=== PATIENT | male | born 1990 | race Caucasian/White ===

== ENCOUNTER 2017-11-11 20:26 | Inpatient (IN) | payer OTHER ==
[~2017-11-11] VITALS: Ht 188 cm; Wt 81.6 kg
--- NOTE | 2017-11-11 22:00 | NUR ---
Intake Assessment: Pt is met in the Intake Office at approximately 2200 on 11/11/17. Pt appears severely intoxicated, When asked how he is, replies "high". Pt is slumped posture, disheveled with uncombed hair, unshaven with dirty fingernails and odorous, poor dental hygiene/unwashed clothing. Pt presents with flat affect, avoidant eye contact, worried, anxious, and depressed. VS's obtained: BP 144/87, HR 73, RR 16, SaO2 94%, and T 96.6. Pt states he has been using Heroin IV, last use about 2 hours prior at 8:30pm. Pt denies any SI/HI, able to list prior detox's/rehabs, but at other time extremely poor historian. Denies any PMHl lists PPH including Anxiety, Depression, ADHD, and Bipolar. Pt also denies any Sz hx but says he has experienced W/D induced delirium, no cardiac complications noted. Pt denies any known allergies, lists his height as 6'2", 210lbs. Rules and policies of unit explained to pt, pt verbalizes understanding
[2017-11-11] MEDS ORDERED: BUPRENORPHINE HCL 2 MG TAB.SUBL SL PRN (23:00)
[2017-11-11] MEDS ORDERED: ACETAMINOPHEN 325 MG TABLET PO PRN (23:00)
[2017-11-11] MEDS ORDERED: MIRALAX 17 GM POWD.PACK PO PRN (23:00)
[2017-11-11] MEDS ORDERED: ONDANSETRON 4 MG/2 ML VIAL IM PRN (23:00)
[2017-11-11] MEDS ORDERED: LOPERAMIDE HCL 2 MG CAPSULE PO PRN ×2 (23:00)
[2017-11-11] MEDS ORDERED: MAGNESIUM HYDROXIDE 30 ML LIQUID UDC PO PRN (23:00)
[2017-11-11] MEDS ORDERED: MAG HYDROX/AL HYDROX/SIMETH 30 ML LIQUID UDC PO PRN (23:00)
[2017-11-11] MEDS ORDERED: METHOCARBAMOL 750 MG TABLET PO PRN (23:00)
[2017-11-11] MEDS ORDERED: 5 DAY TAPER BUPRENORPHINE -SERENITY PROTOCOL SL PRN (23:00)
[2017-11-11] MEDS ORDERED: IBUPROFEN 400 MG TABLET PO PRN (23:00)
[2017-11-11] MEDS ORDERED: ONDANSETRON ODT 4 MG TAB.RAPDIS SL PRN (23:00)
[2017-11-11 23:25] LABS: *AMPHETAMINE, URINE NEGATIVE (NEGATIVE); *BARBITURATE, URINE NEGATIVE (NEGATIVE); *CANNABINOID, URINE NEGATIVE (NEGATIVE); *COCCAINE, URINE NEGATIVE (NEGATIVE); *OPIATE, URINE POSITIVE (NEGATIVE); *PHENCYCLIDINE SCREEN,URINE NEGATIVE (NEGATIVE)
[2017-11-11 23:30] LABS: BASOPHILS # (AUTO) 0.1 K/uL (0.0-8.0); BASOPHILS % (AUTO) 0.7 % (0.0-2.0); EOSINOPHILS % (AUTO) 0.4 % (0.0-7.0); HEMATOCRIT 40.5 % (36.7-47.1); LYMPHOCYTES # (AUTO) 2.4 K/uL (20.0-40.0); LYMPHOCYTES % (AUTO) 20.9 % (20.5-51.5); MEAN CORPUSCULAR HGB CONC 35 g/dL (32.5-36.3); MEAN CORPUSCULAR VOLUME 86.7 fL (73.0-96.2); MONOCYTES # (AUTO) 0.8 K/uL (2.0-10.0); NEUTROPHILS # (AUTO) 8.1 K/uL (1.8-8.9); PLATELET COUNT (AUTO) 276 K/uL (152-348); RED BLOOD CELL COUNT(AUTO) 4.68 MIL/uL (4.06-5.63); WHITE BLOOD COUNT (AUTO) 11.4 K/uL (3.6-10.2)
[2017-11-11 23:45] LABS: ALANINE AMINOTRANSFERASE 46 U/L (16-63); ALKALINE PHOSPHATASE 97 U/L (50-136); AMYLASE 26 U/L (25-115); ASPARTATE AMINOTRANSFERASE 39 U/L (15-37); BILIRUBIN,TOTAL 0.8 mg/dL (0.2-1.0); CARBON DIOXIDE 34 mmol/L (21-32); CHLORIDE 94 mmol/L (98-107); CREATININE 1.2 mg/dL (0.6-1.3); LIPASE 49 U/L (73-393); MAGNESIUM 2.1 mg/dL (1.8-2.4); TOTAL PROTEIN, SERUM 7.5 g/dL (6.4-8.2); UREA NITROGEN, BLOOD 30 mg/dL (7-18)
[2017-11-11 23:56] LABS: THYROID STIMULATING HORMONE 2.725 mIU/mL (0.358-3.740)
[2017-11-12] VITALS: BP 136/94
--- NOTE | 2017-11-12 | NUR ---
Admission Note: Pt admitted to [facility] on 11/11/17 at 2248 hours for medically managed withdrawal from ETOH, Heroin, and Methamphetamine salts. Pt is being listed as a full code, with NKA's, and on a diabetic diet. Admission interview taking place in pt room after skin check reveals skin intact with no contraband, height confirmed at 6'2", and weight adjusted to 180lbs (30lbs less than pt estimate). Pt presents with flat affect, lethargic movement/steady gait, severely intoxicated and not experiencing any withdrawal but able to answer questions and appears oriented x 4. Pt also appears depressed, anxious and restless, worried with avoidant eye contact. Pt denies any PMH, but examination of home meds reveals Humolog and Lantus insulin pens, with needles, Lotrimen topical and Abreva topical. Pt admits to DM since age 10. Pt PPH/PMH now includin. DM Type I 2. Anxiety 3. Depression 4. ADHD 5. Bipolar PPH diagnosed and treated by a "Dr Cole" at [facility], a sober living and IOP, in spring 2017, where pt was from May 2017 to August 2017, pt was able to stay sober for 4 months. Pt also lists [facility] from Mar 08, 2017 to May 01, 2017, another sober living/IOP where pt was able to stay sober for 2 months. Prior to that pt was in [facility], resident, from 2016 to Mar 08, 2017 and [facility] in [facility] from Jan 20, 2017 to Feb 15, 2017 as a resident. In addition, pt admits to more than 20+ detox's and rehabs , with 1.5 years being his longest period sober. Pt lists his substance use, in order of use, as: 1..Heroin IV 1-1.5g/day for last 2 months, last used 2 hours before arrival to [facility], and starting 7 years ago 2. ETOH, 3-12 drinks (45-495mls) 4-5 days/week, last used 11/08/17, starting 14 years ago. 3. Methamphetamine salts, .5g/day used for 2-3 days, occasional use, last used 11/07/17, used for last 5 years. 4. Marijuana, occasional use, for last 14 years . In addition, Pt states remote cigarette hx, and now vapes. Pt list father, mother, and sister as family, no medical hx on any, substance abuse denied for all. Pt denies any SI/HI at present, admits to HI in past, denies Seizure Hx, admits to W/D induced delirium, last occurring a week ago with Meth. Pt states he "went to bed and slept through it". Hx of O/D with Heroin for which he was treated here at [facility] a year ago in ER. No involuntary 5150's or psyc hospitalizations noted. Pt list his w/d symptoms as "bad sleep-insomnia, difficulty falling asleep, cold/hot sweats, really sore, anxious and irritable". 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 When asked why he uses, pt states "I have no idea", on getting sober pt states "I can't keep doing this, I won't live". Pt at first unable to list triggers for relapse, but admits due to coenablers, "boredom and unhappy". Legal consequences are apparent when pt states reason for getting sober is for [employer], unaware if in violation. Asked about barrier to getting sober pt is unable to identify, but states "This is my last chance, I'm losing everything". Pt has toured unit, policies, rules have been explained and detailed. Pt acknowledges understanding. Full safetly measures put into place with bed locked and in lowest position, siderails up x 2, call horton within reach and frequent rounding. Blood has been drawn and U/A obtained. Home meds reconciled by CN. Will continue to monitor pt until EOS, giving endorsement and attending to any s/sx's w/d or distress exhibited. Addendum: 11/12/17 at 0706 by FABI FERRIS RN Pt state for PPH he was dx and tx'd with meds for various dx's from age 11. Pt unable to recall names of any of medications. Dr Cole with [facility] decided "best medication was no medication" according to pt, in spring 2017.
[2017-11-12 00:05] LABS: ETHANOL < 3 MG/DL (0-0)
[2017-11-12 00:07] LABS: GLUCOSE 316 mg/dL (74-106)
--- NOTE | 2017-11-12 00:07 | NUR ---
CRITICAL LAB/MD COMMUNICATION Blood glucose 316. Pt brought home medications of Lantus and Humalog. Dr. Kaufman notified with new orders for sliding scale and Accucheck AC/HS. 8 units of Humalog administered as ordered for Blood glucose 316.
[2017-11-12] MEDS ORDERED: DEXTROSE 50% 50 ML DISP.SYRIN IV PRN (00:30)
[2017-11-12] MEDS ORDERED: DOCO2CRE TP (01:10)
[2017-11-12] MEDS ORDERED: CLOT30CR24 TP (01:10)
[2017-11-12] MEDS ORDERED: INSU3INS6 SQ (01:10)
[2017-11-12] MEDS ORDERED: INSU100I14 (01:10)
[2017-11-12 04:00] VITALS: BP 143/94
--- NOTE | 2017-11-12 04:00 | NUR ---
0400 Rounds VS's obtained/stable. COWS/CIWA deferred r/t pt intoxication. 1.5g Heroin IV last ingested approximately 7.5 hours prior. No s/sx's of w/d evident, pt reports still feeling high.
--- NOTE | 2017-11-12 07:30 | NUR ---
Star of Shift Notes: Received patient in his room. Awake, alert and verbally responsive. Appears mildly intoxicated. Speech is soft and slurred. He appears irritated and agitated. Requesting for medication for anxiety. He denies S/I or H/I. Denies AV hallucinations. He is unshaven, unkept, and appears disheveled with poor regards to hygiene. He is noted with with a bag of skittles, 2 uneaten cups of cocoa krispies cereal. Patient has dx of DM type 1. He was educated on diet regimen. Patient is a 27 year old male admitted for opiate, ETOH and methamphetamine withdrawal who is on PRNs at this time. Educated patient on his current plano of care for the day and his medication regimen. Encouraged oral fluid intake and encouraged group participation to learn new skills to prevent relapse. He was also encouraged to maintain his personal hygiene and space. Per night report, patient did not receive any PRNs. All needs met and attended. Will continue to monitor closely.
--- NOTE | 2017-11-12 07:36 | NUR ---
End of Shift Endorsement given to day nurse. Pt admitted 11/11/17 in late evening for medically managed withdrawal from ETOH, Heroin and Methamphetamine salts. Pt is listed as a full code with NKA's and on a carbohydrate controlled diet. Pt remained intoxicated at 0500, no COWS or CIWA performed. VS's with elevated BP. No medications administered. Pt slept for 3 hours, with 355mls intake and 1 void. CN notified of pt's reports of intermittent ED, parasthesias in BLE's, Diabetic consult to be suggested in morning charge endorsement in addition to dietary consult for 30lb loss over past 2 months. Accucheks and sliding scale insulin ordered.
[2017-11-12] MEDS: BLOOD SUGAR DIAGNOSTIC 1 EACH STRIP VI SCH ×4 (07:53→21:11)
[2017-11-12] MEDS: INSULIN REGULAR, HUMAN 300 UNIT/3 ML VIAL SQ PRN ×2 (07:56→16:41)
[2017-11-12 08:00] VITALS: BP 111/66
--- NOTE | 2017-11-12 08:00 | NUR ---
COWS Assessment/Subutex at 0900 held: COWS 9, patient appears with facial flushing, c/o intermittent sweating, generalized discomfort and is irritable and anxious. Subutex at 0900 held. Patient currently does not meet criteria for Subutex administration at this time. Patient education provided. Will continue to monitor.
[2017-11-12] MEDS: MULTIVITAMINS,THERAPEUTIC TABLET PO SCH (08:14)
[2017-11-12] MEDS: HYDROXYZINE PAMOATE 25 MG CAPSULE PO PRN (08:14)
--- NOTE | 2017-11-12 08:15 | NUR ---
Vistaril 50 mg PO given: Patient complains of anxiety. BP 111/66, Pulse 60. Non-pharmacological interventions provided but ineffective. Medicated patient with Vistaril 50 mg PO as ordered. Will monitor for effectiveness.
[2017-11-12] MEDS: BUPRENORPHINE HCL 2 MG TAB.SUBL SL SCH ×4 (09:00→21:19)
[2017-11-12] MEDS ORDERED: TUBERCULIN,PURIF.PROT.DERIV. 5 TU/0.1 ML TEST ID ONE (09:00)
--- NOTE | 2017-11-12 09:15 | NUR ---
Re-assessment: Vistaril Patient verbalizes mild relief from anxiety at this time. PRN Vistaril was effective.
--- NOTE | 2017-11-12 11:38 | NUR ---
MD Communication: 3-day Ativan taper Dr. Kaufman notified of patient's ETOH use. Orders obtained for patient to be started on 3-day Ativan taper as ordered. Patient education provided. First dose to be given now.
[2017-11-12 12:00] VITALS: BP 139/98
--- NOTE | 2017-11-12 12:00 | NUR ---
COWS/CIWA Assessment: COWS 16/CIWA 18, patient presented with gross tremors, anxiety, agitation, irritability, intermittent perspiration, clammy skin, chills, hot flashes, yawning, myalgia of 5/10, mild headache, paresthesia, worried facial expression, he appears disheveled, unkempt, and restlessness noted. Offered Robaxin for myalgia but refused. Patient was started on 3-day Ativan taper and 5-day Subutex taper per schedule. Offered fluids and support provided. Will continue to monitor.
--- NOTE | 2017-11-12 12:00 | NUR ---
[facility] Assessment: CIWA 14, patient continues to present with anxiety, agitation, irritability, worried facial expression, gross tremors and intermittent perspiration. He was encouraged to attend group due to episodes of self isolation. Offered PRNs. Oral fluids encouraged. Support provided. Will continue to monitor. Addendum: 11/12/17 at 1519 by DEXTER CURTIS LVN Error in charting
[2017-11-12] MEDS: LORAZEPAM 1 MG TABLET PO SCH ×4 (12:03→21:19)
--- NOTE | 2017-11-12 12:27 | NUR ---
Clarification of ETOH use: Patient reports 3-12 cocktail drinks of [place] Whiskey and Ena Alexandra approximately 3 to 4 nights a week with each drink consisting of approximately 100 ml of whiskey. made aware. Last drink was 11/08/2017, 12-13 whiskey/ena alexandra cocktail.
[2017-11-12 16:00] VITALS: BP 107/67
--- NOTE | 2017-11-12 16:25 | NUR ---
COWS/CIWA Assessment: COWS /CIWA 15, patient continues to present with s/s of withdrawal m/b yawning, paresthesia, tachycardia, anxiety, agitation, gross tremors, intermittent sweating, facial flushing, chills, hot flashes, myalgia and anhedonia. He continues to appear disheveled. Encouraged personal hygiene. Will continue to monitor and medicate patient as ordered.
[2017-11-12] MEDS: LANTUS SOLO STAR SQ SCH (16:45)
--- NOTE | 2017-11-12 19:12 | NUR ---
End of Shift Notes: Patient continues to be on 5-day Subutex and 3-day Ativan taper as ordered to manage withdrawal symptoms related to opiates. VS monitored closely. No significant abnormalities noted. Withdrawal symptoms were closely monitored. Initial COWS 9 at 0800, then 16 at 1200, CIWA 18 patient presented with anxiety, agitation, irritability, generalized discomfort, fatigue, malaise, anhedonia, myalgia, intermittent perspiration, and facial flushing. Medicated patient with Vistaril 50 mg Po at 0815 for anxiety with help. 0900 Subutex held, due to COWS 9. BS monitored closely q AC. Administered RI per SS. Patient received 50U of Lantus insulin as ordered. Verified with MD and pharmacy. No diabetic reactions noted. Patient was started on 3-day Ativan taper at 1140 today. Last COWS 12/CIWA 15. All needs met and attended. Safety precautions in place. All needs met and attended. Will continue to monitor closely.
--- NOTE | 2017-11-12 19:30 | NUR ---
Start of Shift Note Received a 27 y/o male px, admitted for medically supervised withdrawal from ETOH and Heroin. Px was placed on 5 day Subutex taper and 3 day Ativan taper started on 11/12/2017. Last reported COWS 12 and CIWA 15 by AM shift nurse. Px has DM 1. During the rounds at 1930, px awake on bed in left side lying position. Px appears sleepy and drowsy with poor eye contact and soft speech. Px is disheveled and unshaven. Px stated that anxiety is 8/10 and has stomach cramps. Bed on lowest position, side rails up 2x, and call light within reach. We'll continue to monitor.
[2017-11-12 20:00] VITALS: BP 127/78
--- NOTE | 2017-11-12 20:00 | NUR ---
COWS 12 and CIWA 13 Px appears anxious and drowsy during assessment. Mild bilateral hand tremors noted. Stomach cramps present. Px complained of sweats at night and stuffy nose.
[2017-11-12] MEDS: DICYCLOMINE HCL 20 MG TABLET PO PRN (21:19)
--- NOTE | 2017-11-12 21:20 | NUR ---
PRN Bentyl Px received Bentyl 20 mg PO for stomach cramps. To reassess after an hour.
--- NOTE | 2017-11-12 21:20 | NUR ---
BG BG= 315. Humulin R 8 "u" given SQ on right lower quadrant per sliding scale.
[2017-11-12] MEDS: INSULIN REGULAR, HUMAN 300 UNITS/3 ML VIAL SQ PRN (21:23)
--- NOTE | 2017-11-12 21:50 | NUR ---
COWS 12 reassessment Px still appears anxious. Mild bilateral hand tremors still noted. Px complained of sweats at night and stuffy nose.
--- NOTE | 2017-11-12 22:20 | NUR ---
CIWA 13 reassessment Px still appears anxious and depressed with poor eye contact. Mild bilateral hand tremors noted. We'll continue to monitor.
[2017-11-13] VITALS: BP 119/77
--- NOTE | 2017-11-13 | NUR ---
COWS and CIWA deferred COWS and CIWA deferred due to the px is asleep. To assess if the px is awake per doctor's order. We'll continue to monitor.
[2017-11-13 04:00] VITALS: BP 121/78
--- NOTE | 2017-11-13 07:10 | NUR ---
End of Shift Note During the shift at 2119, px TS=216, Humulin R 8 "u" given SQ on right lower quadrant aseptically per sliding scale. He was also given Bentyl 20 mg PO for stomach cramps. It was effective. Px oral intake is 1200 ml, voided 2x, without BM. Px slept for total of 8 hours. Last COWS 12 and CIWA 13. At 0630, px is awake on bed in left side lying position. Bed on lowest position, side rails up 2x, and call light within reach. We'll continue to monitor. Px endorsed to AM shift nurse.
--- NOTE | 2017-11-13 07:25 | NUR ---
Start of shift Pt. is a 27 y/o male admitted for medically managed withdrawal from ETOH(whiskey), Opiates (Heroin), and Methamphetamines. Pt. was placed on a 5 day subutex taper and a 3 day ativan taper to managed withdrawal symptoms. Today is the pt.'s second day of taper medications. Endorse pt. presented with anxiety, restlessness and stomach cramps during previous shift. PRN Bentyl was given to manage withdrawal symptoms. Received pt. in room. Pt. laying face down in his bed with eyes closed. No, signs of SOB noted. Pt.'s linens are cluttered, open food containers are on the counters around the bed, and pt. presents with facial flushing while sleeping. Last COW's 11 and CIWA 12. Safety measures in place. Will continue to monitor pt.'s behavior for safety.
[2017-11-13 08:00] VITALS: BP 118/73
--- NOTE | 2017-11-13 08:00 | NUR ---
COWS/CIWA Assessment: COWS 11/CIWA 12. Pt. in room laying in bed and presents with diaphoresis, Flushed facial congested, piloerection, slight tremor, and anxiety. Pt. compliant with medication regiment at this point will continue to monitor. Pt.'s behavior for safety.
[2017-11-13 08:06] LABS: HEPATITIS B SURFACE AG Negative (Negative)
[2017-11-13] MEDS: LORAZEPAM 1 MG TABLET PO SCH ×3 (08:26→21:11)
[2017-11-13] MEDS: MULTIVITAMINS,THERAPEUTIC TABLET PO SCH (08:26)
[2017-11-13] MEDS: BLOOD SUGAR DIAGNOSTIC 1 EACH STRIP VI SCH ×4 (08:26→21:22)
[2017-11-13] MEDS: BUPRENORPHINE HCL 2 MG TAB.SUBL SL SCH ×3 (08:30→21:11)
[2017-11-13 12:00] VITALS: BP 119/77
--- NOTE | 2017-11-13 12:00 | NUR ---
COWS/CIWA Assessment: COWS /CIWA 12. Pt. in room laying in bed and presents with diaphoresis, Flushed facial congested, piloerection, slight tremor, and anxiety. Pt. compliant with medication regiment and accucheck. Encouraged pt. to verbalize concerns and emotions. Will continue to monitor Pt.'s behavior for safety.
[2017-11-13] MEDS: INSULIN REGULAR, HUMAN 300 UNIT/3 ML VIAL SQ PRN ×2 (12:22→16:33)
[2017-11-13 16:00] VITALS: BP 123/69
--- NOTE | 2017-11-13 16:00 | NUR ---
COWS/CIWA Assessment: COWS 11/CIWA 11. Pt. in room laying in bed and presents with diaphoresis, Flushed facial congested, piloerection, slight tremor, and anxiety. Pt. compliant with medication regiment at this point will continue to monitor.
[2017-11-13] MEDS: LANTUS SOLO STAR SQ SCH (16:34)
--- NOTE | 2017-11-13 19:21 | NUR ---
End of shift Pt. is a 27 y/o male admitted for medically managed withdrawal from ETOH(whiskey), Opiates (Heroin), and Methamphetamines. Pt. was placed on a 5 day subutex taper and a 3 day ativan taper to managed withdrawal symptoms. Pt. was compliant with medication regiment and treatment plan throughout the day.Pt. presented with anxiety, restlessness flushed facial skin, congestion and piloerection. No PRN's given during shift. Last COW's 11 and CIWA 11. Safety measures in place. Will continue to monitor pt.'s behavior for safety.
--- NOTE | 2017-11-13 19:50 | NUR ---
Start of Shift Note Received a 27 y/o male px, admitted for medically supervised withdrawal from ETOH and Heroin. Px was placed on 5 day Subutex taper and 3 day Ativan taper started on 11/12/2017. Last reported COWS 11 and CIWA 11 by AM shift nurse. Px has DM 1. During the rounds at 1950, px is awake sitting on the edge of the bed eating peanuts. Px appears sleepy and drowsy with poor eye contact and soft speech. Px is disheveled and unshaven. Px stated that anxiety is 4/10 and has stomach cramps. Bed on lowest position, side rails up 2x, and call light within reach. We'll continue to monitor.
[2017-11-13 20:00] VITALS: BP 136/81
--- NOTE | 2017-11-13 20:00 | NUR ---
COWS 10 and CIWA 9 Px appears anxious. Mild bilateral hand tremors noted. Stomach cramps present. Px complained of sweats/chills and stuffy nose. MS is less than 80.
[2017-11-13] MEDS: DICYCLOMINE HCL 20 MG TABLET PO PRN (21:11)
--- NOTE | 2017-11-13 21:11 | NUR ---
PRN Bentyl Px received Bentyl 20 mg PO for stomach cramps. To reassess after an hour.
[2017-11-13] MEDS: INSULIN REGULAR, HUMAN 300 UNITS/3 ML VIAL SQ PRN (21:14)
--- NOTE | 2017-11-13 21:15 | NUR ---
BG BG= 393 mg/dl. Humulin R 10 "u" given SQ on left quads per sliding scale.
--- NOTE | 2017-11-13 21:30 | NUR ---
Notes on Diet At 2100, a WATERPROOFING SUPERVISOR found a pack of gummy candies and a bottle of vitamin water inside his room covered with blanket. At 2230, a WATERPROOFING SUPERVISOR caught the px eating a regular ice cream bar. Diabetes was explained and strict diet should be followed in his case. Px stated that he already knows what was explained to him. We'll continue to monitor.
--- NOTE | 2017-11-13 21:41 | NUR ---
COWS 10 reassessment Px appears anxious. Mild bilateral hand tremors noted. Px was given Bentyl for stomach cramps. Px complained of sweats/chills and stuffy nose.
--- NOTE | 2017-11-13 22:11 | NUR ---
CIWA 9 reassessment Px appears anxious. Mild bilateral hand tremors noted. Bentyl 20 mg PO given stomach cramps.
--- NOTE | 2017-11-13 22:11 | NUR ---
Reassessment of Stomach cramps Px stated that his stomach cramps improved after an hour of administration of Bentyl 20 mg PO.
[2017-11-14] VITALS: BP 122/77
--- NOTE | 2017-11-14 | NUR ---
COWS 10 and CIWA 9 Px still appears anxious but ready to sleep. Mild bilateral hand tremors noted. Bentyl 20 mg PO given for stomach cramps earlier. Px complained of sweats/chills and stuffy nose. MN is less than 80.
[2017-11-14 04:00] VITALS: BP 122/77
--- NOTE | 2017-11-14 07:05 | NUR ---
End of Shift Note During the shift at 2023, px received Bentyl 20 mg PO for stomach cramps. It was effective. At 2031, px received MOM 30 ml PO for constipation. Px oral intake is 1000 ml, voided 2x, NO BM. Px slept for 7 hours. Last COWS 12 and CIWA 17. At 0630, px is asleep on bed in fowlers position. Bed on lowest position, side rails up 2x, and call light within reach. We'll continue to monitor. Px endorsed to AM shift nurse.
--- NOTE | 2017-11-14 07:30 | NUR ---
Star of Shift Notes: Received patient in his room. Awake, alert and verbally responsive. Appears drowsy upon waking. Speech is soft and slurred. He appears irritated and agitated. He denies S/I or H/I. Denies AV hallucinations. He is unshaven, unkept, and appears disheveled with poor regards to hygiene. Empty sugar free pudding and diet cranberry juice seen at bedside. Patient has dx of DM type 1. He was educated on diet regimen and encouraged to comply. Patient is a 27 year old male admitted for opiate, ETOH and methamphetamine withdrawal who is placed on a 5-day Subutex and 3-day Ativan as ordered. Educated patient on his current plan of care for the day and his medication regimen. Encouraged oral fluid intake and encouraged group participation to learn new skills to prevent relapse. He was also encouraged to maintain his personal hygiene and space. Per night report, christiano received Bentyl for abdominal cramps with help. Last COWS 10/CIWA 9. Slept for a total of 5 hours. All needs met and attended. Will continue to monitor closely.
[2017-11-14 08:00] VITALS: BP 136/93
--- NOTE | 2017-11-14 08:00 | NUR ---
COWS/CIWA Assessment/MD Communication: COWS 18/CIWA 15, patient presented with facial flushing, restlessness, bone/joint aches, nasal stuffiness, stomach cramps, gross tremors, irritability, anxiety/agitation, yawning, cold clammy skin, piloerection of the skin, paresthesia and anhedonia. Will medicate patient as ordered. MD aware of patient's CIWA score.
[2017-11-14] MEDS: BLOOD SUGAR DIAGNOSTIC 1 EACH STRIP VI SCH ×4 (08:09→20:21)
[2017-11-14] MEDS: LORAZEPAM 1 MG TABLET PO SCH ×2 (08:11→20:18)
[2017-11-14] MEDS: INSULIN REGULAR, HUMAN 300 UNIT/3 ML VIAL SQ PRN ×3 (08:11→16:38)
[2017-11-14] MEDS: MULTIVITAMINS,THERAPEUTIC TABLET PO SCH (08:12)
[2017-11-14] MEDS ORDERED: BUPRENORPHINE HCL 2 MG TAB.SUBL SL SCH (09:00)
[2017-11-14 12:00] VITALS: BP 133/78
--- NOTE | 2017-11-14 12:30 | NUR ---
COWS/CIWA Assessment: COWS 14/CIWA 14, patient continues to present with anxiety, agitation, irritability, chills, hot flashes, diaphoresis, facial flushing, restlessness, and paresthesia. Will continue with current taper as ordered.
[2017-11-14] MEDS: BUPRENORPHINE HCL 2 MG TAB.SUBL SL SCH ×2 (14:12→20:18)
[2017-11-14 16:00] VITALS: BP 145/95
--- NOTE | 2017-11-14 16:14 | NUR ---
COWS/CIWA Assessment: COWS 13, CIWA 13, patient continues to present with gross tremors, anxiety, agitation, irritability, facial flushing, intermittent perspiration, myalgia, yawning and restlessness. Will continue to monitor and offer support.
[2017-11-14] MEDS: LANTUS SOLO STAR SQ SCH (16:29)
--- NOTE | 2017-11-14 19:07 | NUR ---
End of Shift Notes: Patient continues to be on 5-day Subutex and 3-day Ativan taper as ordered to manage withdrawal symptoms related to opiates and ETOH. VS monitored closely. No significant abnormalities noted. Withdrawal symptoms were closely monitored. Initial COWS 18 at patient presented with anxiety, agitation, irritability, generalized discomfort, stomach cramps, paresthesia fatigue, malaise, anhedonia, myalgia, intermittent perspiration, and facial flushing. Last COWS 13/CIWA 13. Patient verbalizes that Subutex and Ativan has been effective in reducing his withdrawal symptoms. BS monitored closely q AC meals. Administered RI per SS. Patient continues to be non-compliant with diet although encouraged to comply. No s/s of hypo/hyperglyemia noted. All needs met and attended. Safety precautions in place. Will continue to monitor closely.
--- NOTE | 2017-11-14 19:51 | NUR ---
START OF SHIFT NOTE Rcvd report from outgoing nurse. Pt is a 27 y/o male A/O to person, place, time, and purpose. Pt was admitted for medically supervised withdrawal from ETOH and Heroin. Pt has a medical h/o DM type 1. Pt has been non-compliant w/ carbohydrate controlled diet. Pt has been educated on compliance w/ diet. Pt has been presenting w/ anxiety, agitation, depressed and withdrawn mood, flat affect, restless legs, body aches, and sweats. Pt denies S/I and H/I. Pt rcvd no PRN medications during previous shift. Last CIWA 13 and COWS 13 @ 1600. Call light is within reach. Pt will continue to be monitored and needs met.
--- NOTE | 2017-11-14 20:00 | NUR ---
CIWA AND COWS ASSESSMENT CIWA 15 and COWS 14. Pt presenting w/ anxiety, agitation, restless legs, body aches, and sweats. Pt is depressed and withdrawn. Pt only leaves his room to smoke occasionally. V/S: T:98.9, P:67, RR:12, SPO2:98, BP:159/77.
[2017-11-14 20:01] VITALS: BP 159/77
[2017-11-14] MEDS: diphenhydrAMINE 50 MG CAPSULE PO PRN (20:17)
[2017-11-14] MEDS: CLONIDINE HCL 0.1 MG TABLET PO PRN (20:17)
--- NOTE | 2017-11-14 20:17 | NUR ---
PRN CLONIDINE ASSESSMENT Clonidine 0.1mg given. Pt is c/o anxiety leading to insomnia. Will reassess pt in 1 hr.
[2017-11-14] MEDS: INSULIN REGULAR, HUMAN 300 UNITS/3 ML VIAL SQ PRN (20:24)
--- NOTE | 2017-11-14 21:17 | NUR ---
PRN CLONIDINE REASSESSMENT Pt states "the clonidine did nothing for me. Can I try the Vistaril". Will administer Vistaril.
[2017-11-14] MEDS: HYDROXYZINE PAMOATE 25 MG CAPSULE PO PRN (21:23)
--- NOTE | 2017-11-14 21:23 | NUR ---
PRN VISTARIL ADMINISTRATION Vistaril 50mg given. Pt c/o anxiety causing him insomnia. Will reassess pt in 1 hr.
--- NOTE | 2017-11-14 22:23 | NUR ---
PRN VISTARIL REASSESSMENT Pt states mild relief of anxiety. Pt, however, unable to sleep. Advised pt to turn off lights and turn downm TV. Also, to close eyes and try deep breathing.
--- NOTE | 2017-11-15 00:03 | NUR ---
CIWA AND COWS DEFERRED. V/S REFUSED Pt is in bed w/ his eyes closed. Pt's respirations are unlabored and even.
--- NOTE | 2017-11-15 04:03 | NUR ---
CIWA AND COWS DEFERRED. V/S REFUSED Pt is in bed w/ his eyes closed. Pt's respirations are unlabored and even.
--- NOTE | 2017-11-15 07:15 | NUR ---
END OF SHIFT NOTE Endorsed pt to oncoming nurse. Pt is a 27 y/o male A/O to person, place, time, and purpose. Pt was admitted for medically supervised withdrawal from ETOH and Heroin. Pt has a medical h/o DM type 1. Pt has been non-compliant w/ carbohydrate controlled diet. Pt has been educated consistently on compliance w/ diet. Pt has been presenting w/ anxiety, agitation, depressed and withdrawn mood, flat affect, restless legs, body aches, and sweats. PRN Vistaril 50mg and Clonidine 0.1mg were given for anxiety and agitation, both noted effective. Pts fluid intake was 500ml and he voided 1 time. Pt slept for 6 hrs. Last CIWA 15 and COWS 14 @ 1999. Call light is within reach.
--- NOTE | 2017-11-15 07:46 | NUR ---
Star of Shift Notes: Received patient in his room. Awake, alert and verbally responsive. He appears irritated and agitated. He denies S/I or H/I. Denies AV hallucinations. He is unshaven, unkept, and appears disheveled with poor regards to hygiene. He was educated on diet regimen and encouraged to comply. Patient is a 27 year old male admitted for opiate, ETOH and methamphetamine withdrawal who is placed on a 5-day Subutex and 3-day Ativan as ordered. Educated patient on his current plan of care for the day and his medication regimen. Encouraged oral fluid intake and encouraged group participation to learn new skills to prevent relapse. He was also encouraged to maintain his personal hygiene and space. Per night report, patient received Vistaril and Clonidine. Last . Slept for a total of 6 hours. All needs met and attended. Will continue to monitor closely.
[2017-11-15 08:00] VITALS: BP 109/69
[2017-11-15] MEDS: BLOOD SUGAR DIAGNOSTIC 1 EACH STRIP VI SCH ×4 (08:09→21:01)
[2017-11-15] MEDS: HYDROXYZINE PAMOATE 25 MG CAPSULE PO PRN ×3 (08:11→20:56)
[2017-11-15] MEDS: MULTIVITAMINS,THERAPEUTIC TABLET PO SCH (08:11)
[2017-11-15] MEDS: BUPRENORPHINE HCL 2 MG TAB.SUBL SL SCH ×3 (08:11→20:56)
--- NOTE | 2017-11-15 08:11 | NUR ---
Vistaril 50 mg PO given: Patient noted with complains of increased anxiety, irritability. Encouraged patient to verbalize his feelings and concerns. VS stable. Medicated patient with Vistaril 50 mg PO as ordered. Will monitor for effectiveness.
[2017-11-15] MEDS: INSULIN REGULAR, HUMAN 300 UNIT/3 ML VIAL SQ PRN ×3 (08:17→16:39)
--- NOTE | 2017-11-15 08:30 | NUR ---
COWS/CIWA Assessment: COWS 16/CIWA 15, patient presented with difficulty concentrating, chills, hot flashes, restlessness, nasal stuffiness, myalgia, bone/joint aches, facial flushing, intermittent diaphoresis, sweating on brow/face, anxiety, agitation, irritability, and paresthesia. Medicated patient with Subutex per taper dosing. Will continue to monitor.
--- NOTE | 2017-11-15 09:11 | NUR ---
Re-assessment: Vistaril 50 mg Patient verbalizes relief from anxiety. PRN Vistaril was effective. He states "I'm just going to go smoke, but I feel better."
[2017-11-15 12:00] VITALS: BP 120/73
--- NOTE | 2017-11-15 12:22 | NUR ---
COWS/CIWA Assessment: COWS 14/CIWA 13, patient is alert and oriented x 4. Denies S/I or H/I noted. No AV hallucinations noted. He continues to present with s/s of withdrawal m/b gross tremors, anxiety, agitation, irritability, generalized discomfort, fatigue, pupil dilation, chills, hot flashes and fatigue. Will continue with current taper as ordered.
[2017-11-15] MEDS ORDERED: DEXTROSE 50% 50 ML DISP.SYRIN IV PRN (14:15)
--- NOTE | 2017-11-15 14:35 | NUR ---
Vistaril 50 mg PO given: Patient continues to present with increased anxiety and agitation. Non-pharmacological interventions provided but ineffective. Medicated patient with Vistaril 50 mg PO as ordered. Will monitor for effectiveness.
--- NOTE | 2017-11-15 15:35 | NUR ---
Re-assessment: Vistaril Patient verbalizes relief mild relief from anxiety. PRN Vistaril was effective.
[2017-11-15 16:00] VITALS: BP 137/85
--- NOTE | 2017-11-15 16:17 | NUR ---
COWS/CIWA Assessment: COWS 11/CIWA 12, patient continues to present with s/s of withdrawal m/b anxiety. agitation, gross tremors, irritability, myalgia, bone/joint aches, facial flushing, intermittent perspiration, sweating, and paresthesia. Will continue with taper meds as ordered.
[2017-11-15] MEDS: LANTUS SOLO STAR SQ SCH (16:41)
--- NOTE | 2017-11-15 19:02 | NUR ---
End of Shift Notes: Patient continues to be on 5-day Subutex and 3-day Ativan taper as ordered to manage withdrawal symptoms related to opiates and ETOH. VS monitored closely. No significant abnormalities noted. Withdrawal symptoms were closely monitored. Initial COWS 16/CIWA 15, patient presented with anxiety, agitation, irritability, generalized discomfort, stomach cramps, paresthesia fatigue, malaise, anhedonia, myalgia, intermittent perspiration, difficulty concentrating and facial flushing. Medicated patient with Vistaril at 0811 and 1435 for anxiety with help. Last COWS /WA 12. Patient verbalizes that Subutex and Ativan has been effective in reducing his withdrawal symptoms. BS monitored closely q AC meals. Administered RI per SS. Patient continues to be non-compliant with diet although encouraged to comply. No s/s of hypo/hyperglycemia noted. Participated in group and activities. All needs met and attended. Safety precautions in place. Will continue to monitor closely.
--- NOTE | 2017-11-15 19:46 | NUR ---
START OF SHIFT NOTE Rcvd report from outgoing nurse. Pt is a 27 y/o male A/O to person, place, time, and purpose. Pt was admitted for medically supervised withdrawal from ETOH and Heroin. Pt also has a substance abuse h/o Marijuana and Methamphetamines. Pt has a medical h/o DM1 and is on a carb control diet. Pt has not been compliant w/ diet, even though he has been educated several times. Pt has been presenting w/. anxiety, agitation, body aches, restless legs, blunt affect, depressed and withdrawn mood. Pt has stated several times that he feels trapped and bored here, and wants to leave early. Pt was advised that it has to be a joint decision by his medical team and his telehealth case manager/planner internship. Pt denies S/I and H/I. PRN Vistaril 50mg was given @ 1200 and 1630, noted effective. Last CIWA 12 and COWS 11 @ 1600. Call light is within reach. Pt will continue to be monitored and needs met.
[2017-11-15 20:00] VITALS: BP 133/84
--- NOTE | 2017-11-15 20:00 | NUR ---
CIWA AND COWS ASSESSMENT CIWA 13 and COWS 12. Pt has been presenting w/. anxiety, agitation, body aches, restless legs, blunt affect, depressed and withdrawn mood. V/S: T:99.1, P:67, RR:16, SPO2:100, BP:133/84.
[2017-11-15] MEDS: diphenhydrAMINE 50 MG CAPSULE PO PRN (20:56)
[2017-11-15] MEDS: CLONIDINE HCL 0.1 MG TABLET PO PRN (20:56)
--- NOTE | 2017-11-15 20:56 | NUR ---
PRN BENADRYL, CLONIDINE, VISTARIL, AND ROBAXIN ADMINISTRATION Benadryl 50mg, Clonidine 0.1mg, Vistaril 50mg, and Robaxin 750mg given for insomnia, anixety, sweats, agitation, and restless legs. Will reassess pt in 1 hr.
[2017-11-15] MEDS: INSULIN REGULAR, HUMAN 300 UNITS/3 ML VIAL SQ PRN (21:04)
--- NOTE | 2017-11-15 21:56 | NUR ---
PRN BENADRYL, CLONIDINE, VISTARIL, AND ROBAXIN REASSESSMENT Pt states relief from symptoms. Pt states "I feel like I can fall asleep now". Will continue to monitor pt.
--- NOTE | 2017-11-16 | NUR ---
CIWA AND COWS DEFERRED. V/S REFUSED Pt is in bed w/ his eyes closed. Pt's rerspirations are unlabored and even.
--- NOTE | 2017-11-16 04:00 | NUR ---
CIWA AND COWS DEFERRED. V/S REFUSED Pt is in bed w/ his eyes closed. Pt's respirations are unlabored and even.
--- NOTE | 2017-11-16 07:29 | NUR ---
END OF SHIFT NOTE Endorsed pt to oncoming nurse. Pt is a 27 y/o male A/O to person, place, time, and purpose. Pt was admitted for medically supervised withdrawal from ETOH and Heroin. Pt also has a substance abuse h/o Marijuana and Methamphetamines. Pt has a medical h/o DM1 and is on a carb control diet. Pt has not been compliant w/ diet, even though he has been educated several times. Pt continued to present w/. anxiety, agitation, body aches, restless legs, blunt affect, depressed and withdrawn mood. Pt has stated several times that he feels trapped and bored here, and wants to leave early. Pt was advised that it has to be a joint decision by his medical team and his manager case/city planner. PRN Vistaril 50mg, Benadryl 50mg, Clonidine 0.1mg, and Robaxin 750mg given for anxiety, agitation, leg pain, and sleep, noted effective. Pts fluid intake was 1153ml and voided 3 times. Pt slept for 6hrs. Last CIWA 13 and COWS 12 @ 1999. Call light is within reach.
--- NOTE | 2017-11-16 07:50 | NUR ---
START OF SHIFT: Received Pt A/O X 4. He presents with blunted affect and depressed mood.Poor eye contact noted. He denies S/I and H/I. BS 48. He is asymptomatic. 8 oz of orange juice given. Educated him on healthy eating and foods to avoid. He expressed verbal understanding of education. He reports body aches,anxiety,irritability and restlessness. COWS 12 CIWA 8. Will administer medications as ordered to manage s/s of w/d. Pt states he slept well. Will continue to monitor and manage s/s of w/d.
[2017-11-16 08:00] VITALS: BP 104/60
[2017-11-16] MEDS: BLOOD SUGAR DIAGNOSTIC 1 EACH STRIP VI SCH ×4 (08:01→21:31)
[2017-11-16] MEDS: MULTIVITAMINS,THERAPEUTIC TABLET PO SCH (08:52)
[2017-11-16] MEDS ORDERED: BUPRENORPHINE HCL 2 MG TAB.SUBL SL SCH (09:00)
[2017-11-16 12:00] VITALS: BP 130/66
[2017-11-16] MEDS: INSULIN REGULAR, HUMAN 300 UNIT/3 ML VIAL SQ PRN ×2 (12:03→17:04)
--- NOTE | 2017-11-16 12:15 | NUR ---
COWS 12 CIWA 6 He reports anxiety, body aches and irritability.
[2017-11-16 16:00] VITALS: BP 128/87
[2017-11-16] MEDS: LANTUS SOLO STAR SQ SCH (17:02)
--- NOTE | 2017-11-16 18:53 | NUR ---
END OF SHIFT: Pt continues on Subutex taper to manage s/s of w/d which include anxiety,body aches and restlessness with intermittent sweats and chills. His affect is blunted and mood depressed. He denies S/I and H/I. Last COWS 11 CIWA 7. Last BS 258. Covered with sliding scale as ordered and scheduled Lantus. He was compliant with group attendance. Will pass shift report to oncoming night nurse.
--- NOTE | 2017-11-16 19:21 | NUR ---
START OF SHIFT Patient is a 27-year-old male admitted on 11/11/17 for ETOH and opiate withdrawal. Patient has completed a 5-day Subutex taper and a 3-day Ativan taper, tolerated well; patient is schedule for discharge tomorrow. Patient's last COWS was 11, last CIWA was 7. Per endorsement, patient did not receive any PRN medications, only scheduled Lantus and Humulin R per sliding scale. Patient's last blood glucose level was reported as 258 mg/dL by patient's day nurse, Preethi. Upon assessment, patient is alert and oriented x4, disheveled and disorganized. Patient complains of difficulty sleeping and eagerness to "leave" tomorrow. Patient is non-compliant with diabetes management and is passive about his treatment program regarding his addiction. 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 Safety measures in place, side rails up x2, bed locked in low position, call light within reach. Will continue to monitor.
[2017-11-16 20:00] VITALS: BP 120/84
--- NOTE | 2017-11-16 20:00 | NUR ---
COWS 10, CIWA 8 Patient is alert and oriented. Patient complains of anxiety and some restlessness, intermittent diaphoresis. SN to administer meds as ordered. Will continue to monitor.
[2017-11-16] MEDS: INSULIN REGULAR, HUMAN 300 UNITS/3 ML VIAL SQ PRN (21:35)
--- NOTE | 2017-11-16 21:35 | NUR ---
BS 222mg/dL, covered Patient has a current blood glucose level of 222mg/dL. SN to provided coverage per order: 4 units of Humulin Rachna Cross RN, co-signed. Subcutaneous injection given to patient's right upper abdomen; patient tolerated well. SN provided teaching about managing patient's blood glucose and complying with medication regimen, including regular accu-checks after discharge. Patient verbalized understanding to instructions, but responded, "I've been dealing with this for the past 17 years." SN encouraged fluids and appropriate diet options. Will continue to monitor.
[2017-11-16] MEDS: HYDROXYZINE PAMOATE 25 MG CAPSULE PO PRN (21:42)
--- NOTE | 2017-11-16 21:42 | NUR ---
PRN VISTARIL Patient reports some anxiety, mostly related to discharge tomorrow. PRN Vistaril 50mg given PO. Safety measures in place, side rails up x2, bed locked in low position, call light within reach. Will monitor for effectiveness.
--- NOTE | 2017-11-16 22:42 | NUR ---
PRN VISTARIL REASSESSMENT Patient reports that his anxiety has decreased. PRN Vistaril noted to be effective. Safety measures in place, side rails up x2, bed locked in low position, call light within reach. Will continue to monitor.
--- NOTE | 2017-11-17 | NUR ---
COWS & CIWA DEFERRED COWS and CIWA deferred at this time, to be assessed and scored while patient is awake. Safety measures in place, side rails up x2, bed locked in low position, call light within reach. Will continue to monitor.
--- NOTE | 2017-11-17 | NUR ---
MIDNIGHT VITALS REFUSED Patient refused midnight vitals, he did not want to be disturbed while sleeping. Respirations even and unlabored, 16/min. Safety measures in place, side rails up x2, bed locked in low position, call light within reach. Will continue to monitor.
[2017-11-17 04:00] VITALS: BP 112/70
--- NOTE | 2017-11-17 04:00 | NUR ---
COWS & CIWA DEFERRED COWS and CIWA deferred at this time due to patient sleeping; to be assessed and scored while patient is awake. Safety measures in place, side rails up x2, bed locked in low position, call light within reach. Will continue to monitor.
--- NOTE | 2017-11-17 07:15 | NUR ---
END OF SHIFT Patient is a 27-year-old male admitted on 11/11/17 for ETOH and opiate withdrawal. Patient has completed a 5-day Subutex taper and a 3-day Ativan taper, tolerated well; patient is scheduled for discharge today. Patient's last COWS was 10, last CIWA was 8. Patient received PRN Vistaril which was effective. Patient had a blood glucose of 222mg/dL at 2130, covered with 4 units of Humulin R as ordered per sliding scale. Patient slept for 7 hours, total intake of 1,410mL, void x3, stool x0. 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 Safety measures in place, side rails up x2, bed locked in low position, call light within reach. Will endorse to day shift.
--- NOTE | 2017-11-17 07:30 | NUR ---
Start of shift note; Received report from night nurse. Patient is a27 year old male admitted on 11/11/17 for ETOH/ Opiate withdrawal. Patient was placed on 5 day Subutex and 3 day Ativan taper, completed taper without any adverse reactions. Patient appears anxious and nervous, intermittent sweats noted, stomach cramps, muscle aches and complaining of difficulty falling asleep. Patient received PRN Vistaril last night noted to be effective per endorsement. Patient is diagnosed with DM type 1 currently on diabetic diet, educated patient regarding the importance of compliance to diet to prevent hyperglycemia, will continue to monitor patient's snacks and meals. Patient is medically cleared for discharge today to be transferred to [facility]. Educated patient regarding the importance of continuation of sobriety, patient is motivated to remain sober. All safety measures secured. Will continue to monitor patient.
[2017-11-17 08:00] VITALS: BP 128/81
--- NOTE | 2017-11-17 08:00 | NUR ---
CRISTOBAL/MARCELLUS Assessment; Patient is AOX4, presented with anxiety, agitation, difficulty falling asleep, intermitted sweats and muscle aches. Patient completed Treatment without any adverse reactions.
[2017-11-17] MEDS: MULTIVITAMINS,THERAPEUTIC TABLET PO SCH (08:04)
[2017-11-17] MEDS: BLOOD SUGAR DIAGNOSTIC 1 EACH STRIP VI SCH (08:06)
[2017-11-17] MEDS: INSULIN REGULAR, HUMAN 300 UNIT/3 ML VIAL SQ PRN (08:07)
--- NOTE | 2017-11-17 08:12 | NUR ---
Blood sugar check/Insulin dose; Accu-check done, obtained 313mg/dl, protocol initiated. Humulin R insulin 16 units SQ given on right abdomen per Insulin protocol,witnessed by charge nurse. Educated patient regarding the importance of compliance to diabetic diet to prevent further hyperglycemia, patient verbalized understanding.
--- NOTE | 2017-11-17 09:28 | NUR ---
Discharge note; Patient is medically cleared for discharge to be transferred to [facility] treatment to continue sobriety. All valuables, belongings, medications and prescriptions given to patient. Patient denies S/I and H/I. Patient completed treatment without any adverse reactions. Patient left the facility in a stable condition. Met all needs.
== END 2017-11-17 09:28 | disposition other institution (70) | DRG 895 ==
LOC: SRC 21:50
PROVIDERS: ADMIT Family Medicine Addiction Medicine; ATTEND Family Medicine Addiction Medicine
PROC: HZ2ZZZZ Detoxification Services for Substance Abuse Treatment (ICD-10-PCS; principal; 2017-11-11)
PROC: HZ41ZZZ Group Counseling for Substance Abuse Treatment, Behavioral (ICD-10-PCS; 2017-11-14)
DX: F11.23 Opioid dependence with withdrawal (principal); F15.10 Other stimulant abuse, uncomplicated; F17.210 Nicotine dependence, cigarettes, uncomplicated; F10.239 Alcohol dependence with withdrawal, unspecified; Y90.0 Blood alcohol level of less than 20 mg/100 ml; Z79.4 Long term (current) use of insulin; B19.20 Unspecified viral hepatitis C without hepatic coma; E10.9 Type 1 diabetes mellitus without complications; F90.9 Attention-deficit hyperactivity disorder, unspecified type; F31.9 Bipolar disorder, unspecified; F41.9 Anxiety disorder, unspecified
CPT/HCPCS: 36415; 70030-TC; 80307; 80361; 83690; 83735; 84443; 85025; 86580; 86592; 86705; 86803; 87340; 87806; A4663; G0480; J1815; Q0163

== ENCOUNTER 2018-04-27 18:15 | Emergency (ER) | payer BC ==
[~2018-04-27] VITALS: Ht 188 cm; Wt 99.8 kg
[~2018-04-27 18:15] MED LIST: AMOX-430 PO; BUPR1FIL3 SL; NICO-672 TD; QUET50TA PO; lantus SUBCUT
[2018-04-27] MEDS ORDERED: HUMALOG INSULIN SQ (18:23)
--- NOTE | 2018-04-27 18:48 | NUR ---
Pt refused to have blood drawn, Dr Dong made aware.
[2018-04-27 19:36] LABS: *BLOOD, URINE 1+ (NEGATIVE); *CLARITY,URINE SLIGHTLY CLOUDY (CLEAR); *COLOR,URINE DARK YELLOW (YELLOW); *KETONES,URINE 1+ (NEGATIVE); *UROBILINOGEN,URINE 0.2 E.U./dl (NORMAL); LEUKOCYTE ESTERASE ,URINE NEGATIVE (NEGATIVE); NITRITE, URINE NEGATIVE (NEGATIVE); PH,URINE 5.5 (5.0-8.0); UGLUCOSE TRACE (NEGATIVE)
[2018-04-27 19:46] LABS: *BILIRUBIN,URIN 1+ (NEGATIVE)
[2018-04-27 19:51] LABS: BACTERIA,URINE NONE SEEN /HPF (NONE SEEN); SQUAMOUS EPITHELIAL CELL,UR FEW /HPF (NONE SEEN); WBC,URINE 0-3 /HPF (0-3)
--- NOTE | 2018-04-27 20:30 | NUR ---
Patient discharged to home in stable conditon. Written and verbal after care instructions given. Patient verbalizes understanding of instructions.
== END 2018-04-27 20:32 | disposition home or self-care (01) ==
LOC: ER 18:17
DX: S50.852A Superficial foreign body of left forearm, initial encounter (principal); E10.649 Type 1 diabetes mellitus with hypoglycemia without coma; F17.290 Nicotine dependence, other tobacco product, uncomplicated; F12.10 Cannabis abuse, uncomplicated; F11.10 Opioid abuse, uncomplicated; Z79.4 Long term (current) use of insulin; Z79.899 Other long term (current) drug therapy; X58.XXXA Exposure to other specified factors, initial encounter; Y93.89 Activity, other specified; Y92.89 Other specified places as the place of occurrence of the external cause; Y99.8 Other external cause status
CPT/HCPCS: 71045; 73090; 87086; 93005; A4663